=== PATIENT | female | born 1995 | race Caucasian/White ===

== ENCOUNTER 2024-04-20 00:04 | Emergency (ER) | payer BC, SELFPAY ==
[2024-04-20 00:06] VITALS: BP 144/100
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
== END 2024-04-20 00:49 | disposition home or self-care (01) ==
LOC: EMR 00:04
PROVIDERS: EMERGENCY PHYSICIAN Student in an Organized Health Care Education/Training Program; FAMILY PHYSICIAN Nurse Practitioner Adult Health
DX: S60.222A Contusion of left hand, initial encounter (principal); X58.XXXA Exposure to other specified factors, initial encounter
CPT/HCPCS: 99283; 73130

== ENCOUNTER 2024-07-30 19:25 | Emergency (ER) | payer BC, SELFPAY ==
[2024-07-30 19:32] VITALS: BP 130/96
[2024-07-30 20:42] LABS: % Basophils 0.9 % (0-2); % Eosinophils 0.4 % (0-6); % Immature Granulocytes 0.4 % (0-0.5); % Lymphocytes 20.6 % (20.5-51.1); % Monocytes 9.6 % (1.7-9.3); % Neutrophils 68.1 % (42.2-75.2); Absolute Basophils 0.1 10^3/uL (0-0.2); Absolute Eosinophils 0.1 10^3/uL (0-0.7); Absolute Lymphocytes 2.3 10^3/uL (1.2-3.4); Absolute Monocytes 1.1 10^3/uL (0.1-0.6); Absolute Neutrophils 7.6 10^3/uL (1.4-6.5); Hematocrit 37.4 % (37.0-47.0); Hemoglobin 13.1 g/dL (12.0-16.0); Mean Corpuscular Hgb 28.9 pg (27.0-31.0); Mean Corpuscular Volume 82.6 fL (81.0-99.0); Mean Platelet Volume 10.6 fL (7.4-10.4); Nucleated Red Blood Cells % 0 %; Platelet Count 335 10^3/uL (130-400); Red Blood Cell Count 4.53 10^6/uL (4.20-5.40); Red Cell Dist. Width 13.5 % (11.5-14.5); White Blood Cell Count 11.2 10^3/uL (4.8-10.8)
[2024-07-30 21:03] LABS: ALT (SGPT) 17 U/L (0-35); AST (SGOT) 25 U/L (14-36); Albumin 4.7 g/dl (3.5-5.0); Alkaline Phosphatase 62 U/L (38-126); Blood Urea Nitrogen 12 mg/dl (7-17); Calcium 9.6 mg/dl (8.4-10.2); Carbon Dioxide 25 mmol/L (22-30); Chloride 102 mmol/L (98-107); Glucose 67 mg/dl (70-99); Potassium 3.7 mmol/L (3.5-5.1); Sodium 141 mmol/L (135-145); Total Bilirubin 0.4 mg/dl (0.2-1.3); Total Protein 7.5 g/dl (6.3-8.2); eGFR > 60.00
--- NOTE | 2024-07-30 21:20 | ED.GENMED ---
History of Present Illness
General
Chief Complaint: Blood Pressure Problem
Source: patient
Exam Limitations: none
Time Seen by Provider: 07/30/24 20:27
Nursing documentation reviewed up to this point in time: agreed with
History of Present Illness
History of Present Illness:
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
on no hormonal control, no history of DVT PE, no excessive alcohol does not drink or smoke, mother has A-fib father from strokes,
Past History
Past History
ED Past Medical History: None
ED Past Surgical History: None
Social History
Tobacco: Vaping
Alcohol: None
Drug: None
Personal: Single
Living: with family
Employment: Employed
Family History
Family History: Other (af, cva)
Review of Systems
Review of Systems
All Other Systems: Not applicable
Constitutional: Reports fatigue
Respiratory: Reports trouble breathing; Denies cough
Cardiac: Reports palpitations; Denies chest pain or diaphoresis
ABD/GI: Reports no symptoms
: Reports no symptoms
Musculoskeletal: Reports no symptoms; Denies edema
Skin: Reports no symptoms
Neurological: Reports no symptoms
Endocrine: Reports no symptoms
Hematologic/Lymphatic: Reports no symptoms
Phy Exam
Physical Exam
Physical Exam:
Physical Exam
General: no apparent distress, not acutely ill
Neck: No jaundice
Heart: s1/s2 regular rate and rhythm, no murmur. equal radial pulses.
Lungs: no acute respiratory distress. clear bilaterally
Abdomen: Not tender
Neuro: alert and oriented. no focal neurological deficits
Skin: no rash
Psychiatric: well kept. interactive and cooperative
Extremities: no edema.
Course
Orders/Labs/Results
Orders:
Orders
07/30/24 19:26
Electrocardiogram (*1) Urgent
Reason for Study: Tachycardia
EKG- Treatment ONCE
07/30/24 20:36
Complete Blood Count/With Diff Urgent
Comprehensive Metabolic Panel Urgent
HCG, Serum Qualitative Screen Urgent
Comment: ADDON
TSH Reflex To Free T4 Urgent
07/30/24 20:37
Add On- LAB Urgent
Tests Added?: hcg qualitative
07/30/24 21:20
CR Chest - 2 Views Urgent
Comment:
Reason For Exam: sob
07/30/24 21:28
D-Dimer Urgent
Troponin I Urgent
Abnormal Lab Results
07/30/24
20:36
WBC 11.2 H 10^3/uL
(4.8-10.8)
MPV 10.6 H fL
(7.4-10.4)
Absolute Neuts (auto) 7.6 H 10^3/uL
(1.4-6.5)
Absolute Monos (auto) 1.1 H 10^3/uL
(0.1-0.6)
Monocytes % 9.6 H %
(1.7-9.3)
Glucose 67 L mg/dl
(70-99)
07/30/24 20:36
07/30/24 20:36
Vital Signs
Initial and Last Documented VS:
Initial Vital Signs
Temp Pulse Resp BP Pulse Ox
98.3 F 118 18 130/96 98
07/30/24 19:32 07/30/24 19:32 07/30/24 19:32 07/30/24 19:32 07/30/24 19:32
Last Documented Vital Signs
Temp Pulse Resp BP Pulse Ox
98.3 F 92 16 130/96 100
07/30/24 19:32 07/30/24 22:15 07/30/24 22:15 07/30/24 19:32 07/30/24 22:15
MDM/Problems Addressed
Differential Diagnosis Includes:
Hypertension PE doubt ACS, thyroid abnormality
MDM/Problems Addressed:
Shortness of breath fast heart rate elevated blood
*Radiology
Radiology exam reviewed: preliminary read by ED provider
*Pulse Oximetry
Patient hypoxic: no
*EKG
Interpreted by ED Provider?: Yes
Interpretation: abnormal
Comparison EKG: no comparison EKG present
Heart Rate: 108
Rate: normal
Rhythm: sinus
Ischemia: non-specific ST changes
*Police Manager Interpretation
Rate: normal
Interpretation: normal
Heart Rate: 88
Rhythm: sinus
*Critical Care Note
Total Time (30-74mins, 75-104mins- exclusive of procedures): Not Applicable
Update Note
Update Note:
1030 update workup negative thus far repeat blood pressure 106/78 no indication for antihypertensives encouraged her to get a blood pressure cuff follow-up with her PCP
ED Attending Note
-
Portions of this chart may have been created with voice recognition software.� Occasional wrong word or��sound alike� substitutions may have occurred due to the inherent limitations of voice recognition software.
Discharge Plan
Departure
Patient Disposition: Home (Routine Discharge)
Date of Disposition: 07/30/24
Time of Disposition: 22:27
Patient with high blood pressure during this ER visit?: No
Condition: Good
Discharge Problem:
Shortness of breath
Instructions: BLOOD PRESSURE
Prescriptions:
No Action
prednisone 50 mg tablet
50 mg PO DAILY Qty: 5 0RF
diazepam [Valium] 2 mg tablet
2 mg PO HS PRN (Reason: muscle spasm) Qty: 10 0RF
Referrals:
Jazmin Muñoz MD [Family Provider] -
Activity Restrictions/Additional Instructions:
Purchase a blood pressure cuff,
Take your blood pressure morning and evening marked down call your primary care provider to schedule follow-up visit
Interventions
Interventions:
*Risk Screen - Suicide Last Done: 07/30/24 19:35
*General Assessment Last Done: 07/30/24 19:35
*Neglect/Abuse Screening Last Done: 07/30/24 19:35
ED- Cardiac Assessment Last Done: 07/30/24 20:30
ED- Neurological Assessment Last Done: 07/30/24 20:30
ED- Pulmonary Assessment Last Done: 07/30/24 20:30
Discharge Date and Time
Print Language: CHINESE
[2024-07-30 21:24] LABS: HCG, Serum Qualitative Screen Negative
[2024-07-30 21:33] LABS: TSH Reflex To Free T4 0.76 uIU/ml (0.47-4.68)
[2024-07-30 21:50] LABS: D-Dimer < 0.27 ug/mlFEU (0.00-0.50)
[2024-07-30 22:02] LABS: Troponin I < 0.012 ng/ml
[2024-07-30 22:23] VITALS: BP 104/68
== END 2024-07-30 22:33 | disposition home or self-care (01) ==
LOC: EMR 19:25
PROVIDERS: EMERGENCY PHYSICIAN Emergency Medicine; FAMILY PHYSICIAN Obstetrics & Gynecology
DX: R06.02 Shortness of breath (principal); F17.290 Nicotine dependence, other tobacco product, uncomplicated; Z82.3 Family history of stroke
CPT/HCPCS: 99283; 71046; 80053; 84443; 84484; 84703; 85025; 85379; 93005

== ENCOUNTER 2024-12-13 23:49 | Emergency (ER) | payer BC, SELFPAY ==
[2024-12-13 23:51] VITALS: BP 140/90
--- NOTE | 2024-12-14 00:24 | ED.GENMED ---
History of Present Illness
General
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
Source: patient
Exam Limitations: none
Time Seen by Provider: 12/14/24 00:06
Nursing documentation reviewed up to this point in time: agreed with
History of Present Illness
History of Present Illness:
29-year-old female with no reported chronic medical issues presents to the ER for evaluation of dysfunctional uterine bleeding. Patient says that she is normally very regular with her menstrual periods however started bleeding a week early�was not
due until 12/08/2024 but started bleeding on 12/02/2024. She says she has had worse than usual cramping associated with this bleeding and bleeding is occasionally heavier and she is passing clots which is unusual. She saw her primary physician and
had blood work which was apparently unremarkable. She was scheduled for an outpatient ultrasound 12/19/2024 but having worsening cramping and so came to the emergency room for evaluation. PCP was concerned that IUD may be displaced. Patient had
IUD placed 7+ years ago at [facility] in [place]. Denies other symptoms such as dizziness, shortness of breath, vomiting.
Past History
Past History
ED Past Medical History: None
ED Past Surgical History: None
Social History
Tobacco: Vaping
Alcohol: None
Drug: None
Personal: Single
Living: with family
Employment: Employed
Family History
Family History: Other (af, cva)
Review of Systems
Review of Systems
All Other Systems: ROS reviewed and negative except as documented in HPI and ROS
Cardiac: Denies chest pain
ABD/GI: Reports abdominal pain; Denies nausea or vomiting
: Reports bleeding; Denies flank pain
Musculoskeletal: Denies neck pain or back pain
Neurological: Denies dizzy or headache
Phy Exam
Physical Exam
Physical Exam:
General: Awake, alert, oriented x3; no acute distress
Head: Normocephalic, atraumatic
Eyes: Conjunctiva normal
Throat: Airway intact, handling secretions
Neck: Trachea midline, supple without meningismus
Lungs: Breathing comfortably no distress
Heart: Regular rate
Abd: Soft, non distended, minimal pelvic tenderness
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
Neuro: No gross deficits
Extremities: Warm and well-perfused
Scores
Heart Failure Risk
Heart Failure Risk Score: Not Applicable
Heart Score for Chest Pain Patients
STEMI patient?: Not applicable
Withdrawal Assessment of Alcohol
Withdrawal Assessment Completed?: Not applicable
Course
Orders/Labs/Results
Orders:
Orders
12/14/24 00:07
Test Result ONCE
12/14/24 00:23
US Transvaginal [US Pelvis W Transvag Combined] Urgent
Comment:
Reason For Exam: dysfunctonal uterine bleeding
12/14/24 00:26
Type+Screen Urgent
C-Reactive Protein Urgent
Comment: ADDEF
Complete Blood Count/With Diff Urgent
Comprehensive Metabolic Panel Urgent
Erythrocyte Sed Rate Urgent
Comment: ADDED
HCG, Serum Qualitative Screen Urgent
Manual Differential Urgent
12/14/24 01:29
ABO2 Urgent
BBK Wristband Number:
Associate notified that ABO2 has been ordered: [id number]
Date: 12/14/24
Time: 01:10
Pvc Loader ID: [id number]
12/14/24 02:03
CT Abd/pelvis W Iv Cont Urgent
Comment:
Reason For Exam: lower abd pain, bandemia
12/14/24 02:14
Add On- LAB Urgent
Tests Added?: ESR, CRP
12/14/24 02:29
Urinalysis Reflex To Culture Urgent
Date Specimen was Collected: 12/14/24
Time Specimen was Collected: 02:11
Urine Microscopic Reflex Cult Urgent
Chlamydia/GC by PCR Urgent
TISH Source: Urine
Specimen Description:
Source:: URINE
Date Specimen was Collected: 12/14/24
Time Specimen was Collected: 02:19
Urine Culture Urgent
TISH Source: U
Specimen Description:
Date Specimen was Collected: 12/14/24
Time Specimen was Collected: 02:11
12/14/24 02:46
Ketorolac [Toradol] 15 mg IV NOW STA
12/14/24 03:17
DIRECTOR ALUMNI RELATIONS CONSULT Urgent
Consulting Provider: Juliana Bear
Was physician already notified: Yes
Abnormal Lab Results
12/14/24 12/14/24
00:26 02:29
Hct 36.2 L %
(37.0-47.0)
MPV 11.3 H fL
(7.4-10.4)
Band Neutrophils 9 H %
(0-3)
Lymphocytes (Manual) 19 L %
(20-51)
Monocytes (Manual) 17 H %
(2-9)
Carbon Dioxide 21 L mmol/L
(22-30)
Ur Occult Blood Reflex 4+ A
(Negative)
Leukocyte Esterase Rfl 1+ A
(Negative)
Urine RBC 7-10 A /HPF
(0-2)
Urine WBC (Reflex) 30-40 A /HPF
(0-5)
Urine Bacteria (Reflex) Moderate A
(Negative)
12/14/24 00:26
12/14/24 00:26
Vital Signs
Initial and Last Documented VS:
Initial Vital Signs
Temp Pulse Resp BP Pulse Ox
37.1 C 98 20 140/90 100
12/13/24 23:51 12/13/24 23:51 12/13/24 23:51 12/13/24 23:51 12/13/24 23:51
Last Documented Vital Signs
Temp Pulse Resp BP Pulse Ox
37.1 C 86 18 119/79 99
12/13/24 23:51 12/14/24 04:00 12/14/24 04:00 12/14/24 04:00 12/14/24 04:00
MDM/Problems Addressed
Differential Diagnosis Includes:
Fibroid, dislodged IUD, PCOS, etc
MDM/Problems Addressed:
29-year-old female presents with dysfunctional uterine bleeding�has had consistent bleeding for 2 weeks now which is very unusual for her. Also having worse than usual cramping. Vitals and exam as above. Fortunately she has no heavy bleeding on
exam and is hemodynamically stable. Check labs including a CBC and CMP, hCG, type and screen. Check pelvic ultrasound. Monitor and reassess after the above.
Labs reviewed: CBC shows normal hemoglobin 12.6. Platelets acceptable. CMP no clinically significant abnormalities. hCG negative. Ultrasound pending. Vital stable.
Differential from CBC returned and although she has no leukocytosis she does have a significant bandemia wheezing some concern for infectious pathology. No fever. She does have lower abdominal pain and given this bandemia will send for a CT to
rule out another intra-abdominal infectious process as a cause for her symptoms. Possible this is PID�I asked the patient more specifically about discharge�she denies discharge now but says that preceding her abnormal bleeding and pelvic pain she
was having heavy discharge, saw her family doctor and had STD testing that was reportedly negative. I did discuss the case with BRAND MARKETING INTERN for consultation.
CT shows no acute abnormalities. Urinalysis appears contaminated�not having any UTI symptoms. BRAND MARKETING INTERN at bedside evaluating.
Discussed with BRAND MARKETING INTERN repeated pelvic exam no cervical tenderness or discharge. Vaginal swab sent off. Patient appears very well pain improved with. Her vitals are normal heart rate in the 80s normotensive throughout. Labs essentially isolated
bandemia. Could be PID or pain and irregular bleeding related to end of lifespan IUD. Will plan to treat with antibiotics but at this point no clear indication for admission. Will give dose of IV Rocephin here started on course of doxycycline.
Patient comfortable with this. Spoke about return precautions and follow-up plan. I did talk to her about need for repeat lab work. All questions answered.
*Radiology
Radiology exam reviewed: radiology read reviewed
*Pulse Oximetry
Patient hypoxic: no
*Critical Care Note
Total Time (30-74mins, 75-104mins- exclusive of procedures): Not Applicable
Data Reviewed
Source: patient
Patient Management
Discussion with other providers: Color Control Operator (Discussed with BRAND MARKETING INTERN)
ED Attending Note
-
Portions of this chart may have been created with voice recognition software.� Occasional wrong word or��sound alike� substitutions may have occurred due to the inherent limitations of voice recognition software.
Discharge Plan
Departure
Patient Disposition: Home (Routine Discharge)
Date of Disposition: 12/14/24
Time of Disposition: 04:11
Patient with high blood pressure during this ER visit?: No
Discharge Problem:
Pelvic pain, Dysfunctional uterine bleeding, Bandemia
Instructions: Bleeding Between Periods, Pelvic Inflammatory Disease ED
Prescriptions:
New
doxycycline hyclate 100 mg tablet
100 mg PO BID Qty: 20 0RF
No Action
prednisone 50 mg tablet
50 mg PO DAILY Qty: 5 0RF
diazepam [Valium] 2 mg tablet
2 mg PO HS PRN (Reason: muscle spasm) Qty: 10 0RF
Referrals:
Em Hill CRNP [Family Provider] -
Juliana Bear MD [Active] - Call in 1-3 days for appt (DIRECTOR [employer]UM[employer] RELATIONS)
Activity Restrictions/Additional Instructions:
Thank you for visiting the Emergency Department at [facility].
1. Please schedule a follow up appointment as directed. Call first thing tomorrow morning to make an appointment.
2. If indicated, please take your medications as instructed and indicated on discharge paperwork.
3. If any of your symptoms do not improve, or persist, or become more severe within 6-12 hours, please return to the emergency department for further care.
4. Please return to the emergency department if you develop a headache, neck pain/stiffness, fever greater than 100.4F, chest pain, shortness of breath, persistent nausea, vomiting, slurred speech, difficulty walking, numbness/tingling, weakness,
signs of infection or any other symptoms that are worrisome to you.
Please call [phone] if you have any questions.
Interventions
Interventions:
*Risk Screen - Suicide Last Done: 12/13/24 23:51
*General Assessment Last Done: 12/14/24 00:30
*Neglect/Abuse Screening Last Done: 12/13/24 23:51
*ED- Fall Risk Assessment Last Done: 12/14/24 00:30
*ED COVID-19 Vaccine History Last Done: 12/14/24 00:30
ED-Female Genitourinary Assessment Last Done: 12/14/24 00:30
Discharge Date and Time
Print Language: BULGARIAN
[2024-12-14 00:29] VITALS: BP 119/86; BMI 23.7
[2024-12-14 01:12] LABS: HCG, Serum Qualitative Screen Negative
[2024-12-14 01:13] LABS: Hematocrit 36.2 % (37.0-47.0); Hemoglobin 12.6 g/dL (12.0-16.0); Mean Corp Hgb Conc. 34.8 g/dL (33.0-37.0); Mean Corpuscular Hgb 29.6 pg (27.0-31.0); Mean Corpuscular Volume 85.2 fL (81.0-99.0); Mean Platelet Volume 11.3 fL (7.4-10.4); Platelet Count 264 10^3/uL (130-400); Red Blood Cell Count 4.25 10^6/uL (4.20-5.40); Red Cell Dist. Width 13.9 % (11.5-14.5); White Blood Cell Count 6.3 10^3/uL (4.8-10.8)
[2024-12-14 01:16] LABS: ALT (SGPT) 12 U/L (0-35); AST (SGOT) 18 U/L (14-36); Albumin 4.7 g/dl (3.5-5.0); Alkaline Phosphatase 92 U/L (38-126); Blood Urea Nitrogen 10 mg/dl (7-17); Calcium 9.3 mg/dl (8.4-10.2); Carbon Dioxide 21 mmol/L (22-30); Chloride 102 mmol/L (98-107); Estimated Creatinine Clearance 101 ml/min; Glucose 85 mg/dl (70-99); Potassium 3.7 mmol/L (3.5-5.1); Sodium 137 mmol/L (135-145); Total Bilirubin 0.5 mg/dl (0.2-1.3); Total Protein 7.6 g/dl (6.3-8.2); eGFR > 60.00
[2024-12-14 01:41] LABS: Absolute Neutrophils -Man Diff 3.5 10^3/uL (1.4-6.5); Atypical Lymphocytes 6 %; Band Neutrophils 9 % (0-3); Lymphocytes 19 % (20-51); Metamyelocytes 1 % (-); Monocytes 17 % (2-9); Segmented Neutrophils 47 % (42-75); Total Cells Counted 100
[2024-12-14 01:45] LABS: Ovalocytes Occasional; Schistocytes Occasional; Stomatocytes 1+; Target Cells Occasional
[2024-12-14 01:46] LABS: Platelets Checked Yes
[2024-12-14 01:47] LABS: Normal RBC Morphology No
[2024-12-14 02:41] LABS: Urine Albumin Negative (Neg - Trace); Urine Bilirubin Negative (Negative); Urine Character Clear (Clear); Urine Color Yellow; Urine Glucose Negative (Negative); Urine Ketone Negative (Negative); Urine Leukocyte 1+ (Negative); Urine Nitrite Negative (Negative); Urine Occult Blood 4+ (Negative); Urine Urobilinogen Negative (Neg - 1+)
[2024-12-14 02:44] VITALS: BP 125/87
[2024-12-14 02:49] LABS: Erythrocyte Sed Rate 2 mm/hour (0-20)
[2024-12-14] MEDS: TORADOL 15 MG IV (02:51)
[2024-12-14 02:53] LABS: Urine Squamous Cell >30 /LPF (Few)
[2024-12-14 03:01] LABS: Urine White Cell 30-40 /HPF (0-5)
[2024-12-14 03:02] LABS: Urine Bacteria Moderate (Negative)
[2024-12-14 03:20] LABS: C-Reactive Protein < 5.00 mg/L (0.0-10.00)
[2024-12-14 04:00] VITALS: BP 119/79
[2024-12-14] MEDS: ROCEPHIN 1000 MG IV (04:33)
--- NOTE | 2024-12-14 04:33 | CON.MD ---
Consultation - Medical
-
29yo G0 presents to the ER due to prolonged bleeding and pelvic pain. She states she has a Mirena IUD (due to be removed in 02/2025) and was due to have a period but it started earlier and has been ongoing for the past 11 day. Bleeding waxes and
wanes, overall not excessive, though says its a little heavier today than it has been. She is also having pelvic pain, constant dull ache, not like typical her cramping with menses. She was to have a pelvic US ordered by her PCP but due to worsening
pain she presented here. She takes ibuprofen which has not helped, though feeling a lot better since getting toradol in the ER. She denies foul drainage from the vagina, denies n/v/f/c. No UTI sx, no loose BM. Normally has menses for 5 days. Prior
to IUD placement she had heavy menses with some dysmenorrhea.
PMHx: None
PSHx: None
PGYNHx: denies
POBHx: G0
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
All: Sulfa, Adhesive
Meds: Mirena IUD
Vitals: 119/79 SpO2 99% P
Gen: nad well appearing
Abd: soft, nt, nd, no r/g
Pelvic: no labial lesions/ulcerations/erythema noted. There is a small amount of dark red/brown blood in vagina, easily cleared with 1 scopette. Strings of IUD seen. NO CMT, no Fundal ttp. Mild ttp in the right adnexa, no palpable mass or fullness
appreciated.
CBC: 6.3/12.6/264 with bandemia 9% neutrophils
HCG: Neg
Pelvic US: IUD in appropriate location, normal ovaries, no FF
A/P: 29yo G0 with Pelvic pain and Bandemia
Bleeding irregularity could be related to IUD- not unusual to have bleeding pattern changes after 5+ years of the Mirena. No clear reason for her pain, she does not admit to a h/o significant dysmenorrhea or endometriosis. Her IUD is in normal
position on the US and does not appear to be expelling when viewed on Pelvic Exam. She also has no exam or imaging findings that are concerning for PID/TOA. However, no other clear reason for her to have a bandemia. Thus in the setting of her pelvic
pain and bandemia, I think it would be safest to empirically treat for PID. Ceftriaxone x1 dose and Doxycycline 100mg BID x 14 days. Advised if she develops f/c/n/v/worsening pain then these would be reasons to return for inpatient treatment.
Vaginal culture collected by me and Gc-cT and Urine Cx already ordered by ER and pending.
30 mins spent in review of labs/imaging, direct patient care and documentation.
[2024-12-16 06:32] LABS: Bacterial Vaginosis by TMA Negative; Candida glabrata by TMA Negative; Candida species by TMA Negative; Trichomonas vaginalis by TMA Negative
== END 2024-12-14 05:09 | disposition home or self-care (01) ==
LOC: EMR 23:49
PROVIDERS: CONSULT PHYSICIAN Obstetrics & Gynecology; EMERGENCY PHYSICIAN Emergency Medicine; FAMILY PHYSICIAN Nurse Practitioner Adult Health
DX: R10.2 Pelvic and perineal pain (principal); N93.8 Other specified abnormal uterine and vaginal bleeding; D72.825 Bandemia; F17.290 Nicotine dependence, other tobacco product, uncomplicated; Z82.3 Family history of stroke; Z88.2 Allergy status to sulfonamides
CPT/HCPCS: 99284; 96374; 96375; 74177; 76830; 76856; 80053; 81003; 81015; 81513; 84703; 85025; 85652; 86140; 86850; 86900; 86901; 87086; 87481; 87491; 87591; 87661; Q9967